=== PATIENT | female | born 1980 | race Caucasian/White ===

== ENCOUNTER 2017-09-04 14:34 | Day surgery (SDC) | payer SELFPAY ==
--- NOTE | 2017-09-04 18:29 | PRG ---
DATE OF SERVICE: 09/04/2017 PRIMARY TRIAGE LICENSED PRACTICAL NURSE: Dr. Redd Cooley. CHIEF COMPLAINT: Decreased movement. HISTORY OF PRESENT ILLNESS: The patient is a 37-year-old with an intrauterine at 35 weeks and 5 days who presented with decreased movement for the last 2 days. I was called to the room as the nurse taking care of her was unable to find the heart tones by Doppler. Bedside ultras ound was then used and there were no heart tones or movement visualized. The news was sh ared with the family who then asked for some private time for her spouse to pray. Dr. Cooley was then notified of these findings who quickly came to labor and delivery to be with her patient. At that po int in time, management was transferred to her hands. PHYSICAL EXAMINATION: VITAL SIGNS: On initial evaluation was 138/83, heart rate of 111, satting 100% on room air. GENERAL: She appeared to be in no acute distress. She is alert and oriented, cooperative and pleasa nt to interact with. ABDOMEN: Nontender and gravid. Bedside ultrasound demonstrated fetus in a transverse oblique positi on. No heart tones visible. No movement. ASSESSMENT AND PLAN: The patient is a 37-year-old female with an unexplained intrauterine dorie se at 35 weeks and 5 days. Diagnosis was confirmed by Dr. Cooley with a second ultrasound evaluation a nd was subsequently discharged by Dr. Cooley to go home to be with family and friends to grieve and pre pare for the next step.
--- NOTE | 2017-09-04 22:31 | PDOC.EVN ---
Event Note - Event Note Event Note: Late entry: Pt seen at 330pm today Called to L&D for decreased movement. I was notified by Dr. Ochoa that he did not see heart motion on U/S. The family was already made aware but I came to the bedside to talk about a plan. After prayer the family requested that I repeat the U/S to look for heart motion. I did repeat it but no heart motion was seen. At the patient request she did not want to proceed with induction of labor today but wanted time to go home and gather her family and make a plan. She will call my office tomorrow to set that up. After discussion with her and her she was discharged home.
== END 2017-09-04 15:45 ==
LOC: L&D/OP 14:34
PROVIDERS: ATTEND Family Medicine
DX: O36.4XX0 Maternal care for intrauterine death, not applicable or unspecified (principal); Z3A.35 35 weeks gestation of pregnancy
CPT/HCPCS: 99283

== ENCOUNTER 2017-09-06 10:37 | Inpatient (IN) | payer OTHER, SELFPAY ==
[2017-09-06] MEDS ORDERED: Promethazine HCl 25 MG/ML VIAL IM PRN (21:42)
[2017-09-06] MEDS ORDERED: Butorphanol Tartrate 1 MG/ML VIAL SLOW IVP PRN (21:42)
[2017-09-06] MEDS ORDERED: Ondansetron HCl/PF 4 MG/2 ML Vial IVP PRN (21:42)
[2017-09-06] MEDS ORDERED: Acetaminophen 500 MG TAB PO PRN (21:42)
[2017-09-06] MEDS ORDERED: Lidocaine 1% (PF) 30 ML VIAL SC PRN (21:45)
[2017-09-06] MEDS ORDERED: NS / Oxytocin 40 units/1000ml 1,000 ML IV PRN (21:45)
[2017-09-06] MEDS ORDERED: Ibuprofen 800 MG TAB PO PRN (21:45)
[2017-09-06] MEDS ORDERED: HYDROcodone/Acetaminophen 5/325 mg Tablet PO PRN (21:45)
[2017-09-06] MEDS: Misoprostol 100 MCG TAB VAG SCH (22:34)
[2017-09-06] MEDS: NS w/ Oxytocin 10 units 500 ML IV SCH (22:35)
[2017-09-06] MEDS: Lactated Ringer's 1,000 ML IV SCH (22:35)
[2017-09-06 22:39] LABS: Hemoglobin 13.6 g/dL (12.0-16.0); Mean Corpuscular HGB CONC 34.1 g/dL (32.0-36.0); Mean Corpuscular Hemoglobin 30.3 pg (27.0-31.0); Mean Corpuscular Volume 88.9 fL (78.0-98.0); Mean Platelet Volume 10.1 fL (7.4-10.4); Platelet Count 136 thou/uL (130-400); RBC Distribution Width 12.2 % (11.5-14.5); Red Blood Cell (RBC) Count 4.48 mill/uL (4.20-5.40); White Blood Cell (WBC) Count 11.5 thou/uL (4.8-10.8)
[2017-09-06 22:57] VITALS: BP 121/73; TEMP 98.7
[2017-09-06 23:17] LABS: HBSAg Index 0.21 S/CO (0-0.99); Hep B Surf Ag Non-Reactive S/CO (NonReactive)
[2017-09-06 23:18] LABS: Syphilis Antibody Nonreactive (Nonreactive); Syphilis Antibody Index 0.05 S/CO (<1.00 Non-Reactive)
[2017-09-06 23:31] VITALS: BMI 30.6
[2017-09-07] MEDS: Misoprostol 100 MCG TAB VAG SCH ×3 (01:46→19:17)
[2017-09-07] MEDS: Lactated Ringer's 1,000 ML IV SCH ×2 (06:29→15:27)
--- NOTE | 2017-09-07 08:11 | PDOC.EVN ---
Event Note - Event Note Event Note: Pt seen. Cytotec x3 overnight. Will start pitocin this AM at 9am. Plan reviewed with patient and family. They agree. Pain control as needed.
[2017-09-07] MEDS: NS w/ Oxytocin 10 units 500 ML IV SCH (09:25)
--- NOTE | 2017-09-08 02:27 | OP ---
DATE OF DELIVERY: 09/07/2017 PREOPERATIVE DIAGNOSIS: in utero at 36 weeks. POSTOPERATIVE DIAGNOSIS: in utero at 36 weeks. PROCEDURE PERFORMED: Normal spontaneous vaginal delivery. SURGEON: Redd Cooley M.D. ANESTHESIA: None. ESTIMATED BLOOD LOSS: 100 mL. BRIEF DELIVERY SUMMARY: This is a 37-year-old G2, P1 at 36 weeks' gestation, who was diagnosed with a in utero with absence of heart tones earlier this week. She came in for induction of l abor last night. She received Cytotec x3 doses and started on Pitocin this morning. Midday a balloo n was placed since she had made very little cervical change. She responded quite well to the balloon . At 07:15, the balloon spontaneously came out and her water spontaneously broke with blood-tinged f luid. She was 5 cm at that time. Just a few minutes later, she was checked again due to feeling inc reased pressure and she was found to be complete. I arrived with Dr. Hartman present in the room and the baby's head had just delivered. I took over the delivery from there. There was a tight nuchal cord x1. Shoulders and body easily followed and the baby was then disentangled from the cord. The u mbilical cord was doubly clamped and cut and the was wrapped in a blanket. Typical postmortem findings were present with some peeling skin over the baby's elbow and overlapping sutures. Placent a delivered spontaneously and intact with a 3-vessel umbilical cord. Uterine fundus was firm followi ng evacuation of the placenta with very little bleeding present. Two small clots were passed with fu ndal massage. Total estimated blood loss was 100 mL. Pitocin was hanging in the IV. Mother was lef t with the nurse in excellent condition, holding her remains.
== END 2017-09-08 01:00 | disposition home or self-care (01) | DRG 775 ==
LOC: L&D 20:48
PROVIDERS: ADMIT Family Medicine; ATTEND Family Medicine
PROC: 3E0P7VZ Introduction of Hormone into Female Reproductive, Via Natural or Artificial Opening (ICD-10-PCS; 2017-09-06)
PROC: 3E033VJ Introduction of Other Hormone into Peripheral Vein, Percutaneous Approach (ICD-10-PCS; 2017-09-06)
PROC: 10E0XZZ Delivery of Products of Conception, External Approach (ICD-10-PCS; principal; 2017-09-07)
PROC: 0U7C7ZZ Dilation of Cervix, Via Natural or Artificial Opening (ICD-10-PCS; 2017-09-07)
DX: O36.4XX0 Maternal care for intrauterine death, not applicable or unspecified (principal); Z3A.36 36 weeks gestation of pregnancy; Z37.1 Single stillbirth
CPT/HCPCS: 36415; 76815; 85027; 86780; 86850; 86900; 86901; 87340; C1726; J0595; J2001; J2405